=== PATIENT | male | born 1980 | race Caucasian/White ===

== ENCOUNTER 2023-07-07 08:30 | Outpatient (CLI) | payer BC, SELFPAY | END 2023-07-07 08:31 | disposition home or self-care (01) | LOC: NFLDREF 07-12 05:46 | PROVIDERS: PCP Family Medicine; Referring Provider Family Medicine; Visit Provider Family Medicine | DX: Z12.5 Encounter for screening for malignant neoplasm of prostate (principal); Z13.1 Encounter for screening for diabetes mellitus; Z13.6 Encounter for screening for cardiovascular disorders | CPT/HCPCS: 80061; 82947; G0103 ==